=== PATIENT | male | born 1990 | race Caucasian/White ===

== ENCOUNTER 2021-02-06 07:57 | Emergency (ER) | payer SELFPAY ==
[2021-02-06] MEDS ORDERED: Boostrix 0.5 ML (Tdap) VIAL ONE (08:26)
== END 2021-02-06 09:01 | disposition home or self-care (01) ==
LOC: CSHERS 07:57
DX: S01.01XA Laceration without foreign body of scalp, initial encounter (principal); G43.909 Migraine, unspecified, not intractable, without status migrainosus; F17.210 Nicotine dependence, cigarettes, uncomplicated; Z79.899 Other long term (current) drug therapy; Z23 Encounter for immunization; W19.XXXA Unspecified fall, initial encounter
CPT/HCPCS: 12001; 70450; 90471; 90715

== ENCOUNTER 2021-02-22 11:02 | Emergency (ER) | payer SELFPAY | END 2021-02-22 11:41 | disposition home or self-care (01) | LOC: CSHERS 11:02 | DX: Z48.02 Encounter for removal of sutures (principal); G43.909 Migraine, unspecified, not intractable, without status migrainosus; F17.210 Nicotine dependence, cigarettes, uncomplicated ==

== ENCOUNTER 2021-04-07 11:50 | Emergency (ER) | payer SELFPAY | END 2021-04-07 15:57 | disposition home or self-care (01) | LOC: CSHERS 11:50 | DX: S61.213A Laceration without foreign body of left middle finger without damage to nail, initial encounter (principal); W26.8XXA Contact with other sharp object(s), not elsewhere classified, initial encounter; G43.909 Migraine, unspecified, not intractable, without status migrainosus; F17.210 Nicotine dependence, cigarettes, uncomplicated | CPT/HCPCS: 12001 ==

== ENCOUNTER 2021-05-26 13:08 | Emergency (ER) | payer SELFPAY | END 2021-05-26 14:37 | disposition home or self-care (01) | LOC: CSHERS 13:08 | DX: S01.81XA Laceration without foreign body of other part of head, initial encounter (principal); W26.8XXA Contact with other sharp object(s), not elsewhere classified, initial encounter | CPT/HCPCS: 12011 ==

== ENCOUNTER 2021-11-08 10:51 | Emergency (ER) | payer SELFPAY | END 2021-11-08 13:00 | disposition home or self-care (01) | LOC: CSHERS 10:51 | DX: S01.81XA Laceration without foreign body of other part of head, initial encounter (principal); S30.810A Abrasion of lower back and pelvis, initial encounter; F17.290 Nicotine dependence, other tobacco product, uncomplicated; W19.XXXA Unspecified fall, initial encounter | CPT/HCPCS: 12011; 70450; 70486; 72100 ==

== ENCOUNTER 2023-01-22 11:57 | Emergency (ER) | payer OTHER ==
[2023-01-22] MEDS ORDERED: Ketorolac Tromethamine 30 MG/ML VIAL ONE (12:55)
== END 2023-01-22 13:08 | disposition home or self-care (01) ==
LOC: CSHERS 11:57
DX: M25.521 Pain in right elbow (principal); F17.290 Nicotine dependence, other tobacco product, uncomplicated; W11.XXXA Fall on and from ladder, initial encounter
CPT/HCPCS: 96372; J1885

== ENCOUNTER 2023-02-12 23:54 | Emergency (ER) | payer OTHER | END 2023-02-13 00:11 | disposition left against medical advice (07) | LOC: CSHERS 23:54 | DX: Z53.21 Procedure and treatment not carried out due to patient leaving prior to being seen by health care provider (principal) ==

== ENCOUNTER 2023-02-13 00:19 | Emergency (ER) | payer OTHER | END 2023-02-13 01:22 | disposition home or self-care (01) | LOC: CSHERS 00:19 | DX: T18.0XXA Foreign body in mouth, initial encounter (principal); X58.XXXA Exposure to other specified factors, initial encounter | CPT/HCPCS: 99282 ==

== ENCOUNTER 2024-11-25 09:23 | Emergency (ER) | payer SELFPAY | END 2024-11-25 10:52 | disposition home or self-care (01) | LOC: CSHERS 09:23 | DX: F43.0 Acute stress reaction (principal); G40.909 Epilepsy, unspecified, not intractable, without status epilepticus; F17.290 Nicotine dependence, other tobacco product, uncomplicated | CPT/HCPCS: 99283 ==